=== PATIENT | female | born 1960 | race Caucasian/White ===

== ENCOUNTER → 2021-06-03 | Day surgery (SDC) | payer BC | END | disposition home or self-care (01) | LOC: MSO 07:31 | DX: Z12.11 Encounter for screening for malignant neoplasm of colon (principal); E07.9 Disorder of thyroid, unspecified; F41.9 Anxiety disorder, unspecified | CPT/HCPCS: 00812; J2704; J3010; J7120 ==

== ENCOUNTER → 2023-05-05 | Outpatient (CLI) | payer BC | LOC: RAD 09:56 | DX: M48.56XA Collapsed vertebra, not elsewhere classified, lumbar region, initial encounter for fracture (principal) ==